=== PATIENT | female | born 2000 | race Caucasian/White ===

== ENCOUNTER 2021-09-28 18:08 | Emergency (ER) | payer OTHER, BC ==
[2021-09-28] MEDS ORDERED: traMADol HCl 50 MG TAB ONE (19:05)
[2021-09-28] MEDS ORDERED: Ibuprofen 800 MG TAB ONE (19:05)
== END 2021-09-28 19:34 | disposition home or self-care (01) ==
LOC: BURERS 18:08
DX: S13.4XXA Sprain of ligaments of cervical spine, initial encounter (principal); S16.1XXA Strain of muscle, fascia and tendon at neck level, initial encounter; V89.2XXA Person injured in unspecified motor-vehicle accident, traffic, initial encounter
CPT/HCPCS: 72125

== ENCOUNTER 2023-10-24 10:47 | Emergency (ER) | payer BC, OTHER | END 2023-10-24 11:51 | disposition home or self-care (01) | LOC: BURERS 10:47 | DX: M25.461 Effusion, right knee (principal) ==